=== PATIENT | female | born 1990 | race Caucasian/White ===

== ENCOUNTER 2023-12-29 19:26 | Emergency (ER) | payer BC, SELFPAY ==
[2023-12-29 19:28] VITALS: BP 169/130; BMI 43.1
[2023-12-29 19:32] VITALS: BP 169/130
[2023-12-29 19:51] LABS: % Basophils 0.3 % (0-2); % Eosinophils 0.6 % (0-6); % Immature Granulocytes 0.6 % (0-0.5); % Lymphocytes 22.5 % (20.5-51.1); % Monocytes 1.7 % (1.7-9.3); % Neutrophils 74.3 % (42.2-75.2); Absolute Basophils 0.1 10^3/uL (0-0.2); Absolute Eosinophils 0.1 10^3/uL (0-0.7); Absolute Immature Granulocytes 0.1 10^3/uL (0-0.05); Absolute Lymphocytes 3.3 10^3/uL (1.2-3.4); Absolute Monocytes 0.3 10^3/uL (0.1-0.6); Absolute Neutrophils 10.7 10^3/uL (1.4-6.5); Hematocrit 42.4 % (37.0-47.0); Hemoglobin 14.8 g/dL (12.0-16.0); Mean Corp Hgb Conc. 34.9 g/dL (33.0-37.0); Mean Corpuscular Hgb 30.6 pg (27.0-31.0); Mean Corpuscular Volume 87.6 fL (81.0-99.0); Mean Platelet Volume 8.9 fL (7.4-10.4); Nucleated Red Blood Cells % 0 %; Platelet Count 521 10^3/uL (130-400); Red Blood Cell Count 4.84 10^6/uL (4.20-5.40); Red Cell Dist. Width 13.8 % (11.5-14.5); White Blood Cell Count 14.4 10^3/uL (4.8-10.8)
[2023-12-29 20:00] VITALS: BP 166/122
[2023-12-29 20:04] LABS: HCG, Serum Qualitative Screen Negative
[2023-12-29 20:08] LABS: ALT (SGPT) 19 U/L (0-35); AST (SGOT) 27 U/L (14-36); Albumin 4.5 g/dl (3.5-5.0); Alkaline Phosphatase 67 U/L (38-126); Blood Urea Nitrogen 13 mg/dl (7-17); Calcium 9.4 mg/dl (8.4-10.2); Carbon Dioxide 18 mmol/L (22-30); Chloride 106 mmol/L (98-107); Estimated Creatinine Clearance 105 ml/min; Glucose 155 mg/dl (70-99); Lipase 124 U/L (23-300); Potassium 3.7 mmol/L (3.5-5.1); Sodium 138 mmol/L (135-145); Total Bilirubin 0.6 mg/dl (0.2-1.3); Total Protein 7.3 g/dl (6.3-8.2); eGFR > 60.00
[2023-12-29 20:16] LABS: Lactic Acid 4.5 mmol/L (0.7-2.0)
--- NOTE | 2023-12-29 20:42 | ED.GENMED ---
History of Present Illness
General
Chief Complaint: Abdominal Symptoms
Source: patient, spouse and family
Exam Limitations: none
Time Seen by Provider: 12/29/23 20:32
Nursing documentation reviewed up to this point in time: agreed with
History of Present Illness
History of Present Illness:
33 yo female presents to the emergency department c/o n/v/d and abd pain while at her wedding. Recent cholecystectomy 2.5 weeks ago in [place]
Phy Exam
Physical Exam
Physical Exam:
Physical Exam
General: Afebrile
Neck: supple. no meningeal signs. normal posterior pharynx
Heart: s1/s2 regular rate and rhythm, no murmur. equal radial
pulses.
HEENT: Pupils equal round reactive to light, EOMI
Lungs: no acute respiratory distress. clear bilaterally
Abdomen: normal bowel sounds. Mild tenderness to palpation mid abdomen. No CVAT
Neuro: alert and oriented. no focal neurological deficits cranial nerves II through XII intact
Skin: no rash
Psychiatric: well kept. interactive and cooperative
Extremities: no edema. no calf tenderness. negative homans. good distal pulses
Course
Orders/Labs/Results
Orders:
Orders
12/29/23 19:33
Electrocardiogram (*1) Urgent
Reason for Study: Chest Pain
12/29/23 19:34
EKG- Treatment ONCE
12/29/23 19:36
Test Result ONCE
12/29/23 19:42
Complete Blood Count/With Diff Urgent
Comprehensive Metabolic Panel Urgent
HCG, Serum Qualitative Screen Urgent
Lactic Acid Urgent
Lipase Urgent
Blood Culture Q30M
YARITZA Source: Blood/Venous
Specimen Description:
Blood Culture Q30M
YARITZA Source: Blood/Venous
Specimen Description:
12/29/23 20:40
CT Abd/Pel (IV only)-DH only Urgent
Comment:
Reason For Exam: periumbilical pain, v/d s/p lap christopher 2.5wks
0.9% Sodium Chloride 1000 ml [Nss] 2,000 ml IV BOLUS
12/29/23 23:32
Lactic Acid Urgent
Abnormal Lab Results
12/29/23
19:42
WBC 14.4 H 10^3/uL
(4.8-10.8)
Plt Count 521 H 10^3/uL
(130-400)
Abs Immat Gran (auto) 0.1 H 10^3/uL
(0-0.05)
Absolute Neuts (auto) 10.7 H 10^3/uL
(1.4-6.5)
Immature Gran % 0.6 H %
(0-0.5)
Carbon Dioxide 18 L mmol/L
(22-30)
Glucose 155 H mg/dl
(70-99)
Lactic Acid 4.5 H* mmol/L
(0.7-2.0)
12/29/23 19:42
12/29/23 19:42
Vital Signs
Initial and Last Documented VS:
Initial Vital Signs
Temp Pulse Resp BP Pulse Ox
98.0 F 93 15 169/130 96
12/29/23 19:28 12/29/23 19:28 12/29/23 19:28 12/29/23 19:28 12/29/23 19:28
Last Documented Vital Signs
Temp Pulse Resp BP Pulse Ox
98.0 F 80 14 166/122 96
12/29/23 19:28 12/29/23 22:30 12/29/23 22:30 12/29/23 20:00 12/29/23 22:30
MDM/Problems Addressed
Differential Diagnosis Includes:
Appendicitis, abdominal abscess
MDM/Problems Addressed:
33-year-old female with nausea vomiting diarrhea and abdominal pain. Initial lactic acidosis improved after IV fluids. Do not suspect sepsis. Patient stable for discharge.
Chronic conditions affecting care: Previous abdomnial surgery (Cholecystectomy)
*Radiology
Radiology exam reviewed: radiology read reviewed (CT abd/pelvis no acute findings)
*Pulse Oximetry
Patient hypoxic: no
*EKG
Interpreted by ED Provider?: NA
*Frame Bender Interpretation
Rate: Frame Bender- N/A
*Critical Care Note
Total Time (30-74mins, 75-104mins- exclusive of procedures): Not Applicable
Patient Management
Social determinants of health affecting care: Strong social support
Escalation/DeEscalation of care consider admission/obs:
admit not indicated
ED Attending Note
-
Portions of this chart may have been created with voice recognition software.� Occasional wrong word or��sound alike� substitutions may have occurred due to the inherent limitations of voice recognition software.
Discharge Plan
Departure
Patient Disposition: Home (Routine Discharge)
Date of Disposition: 12/30/23
Time of Disposition: 00:13
Patient with high blood pressure during this ER visit?: Yes
Condition: Good
Discharge Problem:
Nausea vomiting and diarrhea, Abdominal pain
Instructions: Diarrhea in teens and adults, Nausea and Vomiting, Adult (DC), Abdominal Pain, BLOOD PRESSURE
Prescriptions:
New
ondansetron 4 mg tablet,disintegrating
4 mg PO Q8H PRN (Reason: nausea and vomiting) 4 Days Qty: 10 0RF
No Action
ondansetron HCl [Zofran] 4 mg Tablet
4 mg PO DAILYPRN PRN (Reason: nausea)
alprazolam [Xanax] 0.25 mg Tablet
0.25 mg PO BIDPRN PRN (Reason: anxiety)
Patient Comments:
12/28/23: called Les in [phone] to confirm. filled on 11/10/23 for 30 tablets
bisacodyl [Dulcolax (bisacodyl)] 5 mg Tablet,Delayed Release (Dr/Ec)
5 mg PO DAILYPRN PRN (Reason: constipation)
fluoxetine [Prozac] 20 mg Capsule
60 mg PO HS
Zenpep 20,000-63,000- 84,000 unit Capsule,Delayed Release(Dr/Ec)
1 cap PO AC
Referrals:
NONE,* [Family Provider] -
Interventions
Interventions:
*Risk Screen - Suicide Last Done: 12/29/23 19:28
*General Assessment Last Done: 12/29/23 19:28
*Neglect/Abuse Screening Last Done: 12/29/23 19:28
*ED COVID-19 Vaccine History Last Done: 12/29/23 19:28
WS-Rohq[facility]-Asqpdesgtu Assessment Last Done: 12/29/23 23:17
Discharge Date and Time
Print Language: IRISH
[2023-12-29] MEDS: NSS 2000 IV (20:46)
[2023-12-29 23:26] VITALS: BP 109/73
[2023-12-30 00:24] VITALS: BP 95/67
[2023-12-30] MEDS: ZOFRAN 4 MG IV (00:33)
== END 2023-12-30 00:40 | disposition home or self-care (01) ==
LOC: EMR 19:26
PROVIDERS: EMERGENCY PHYSICIAN Emergency Medicine
DX: R10.33 Periumbilical pain (principal); R11.2 Nausea with vomiting, unspecified; R19.7 Diarrhea, unspecified; R03.0 Elevated blood-pressure reading, without diagnosis of hypertension; F41.9 Anxiety disorder, unspecified; F32.A Depression, unspecified; Z90.49 Acquired absence of other specified parts of digestive tract; Z98.890 Other specified postprocedural states
CPT/HCPCS: 99285; 96361; 96374; 74177; 80053; 83605; 83690; 84703; 85025; 87040; 93005; Q9967